=== PATIENT | male | born 1950 | race Caucasian/White ===

== ENCOUNTER 2017-04-14 14:06 | Inpatient (IN) | payer MEDICARE, OTHER ==
[2017-04-14 15:17] LABS: Hemoglobin 7.9 gm/dl (11.8-15.2); Mean Corpuscular HGB Conc 33 % (32-34); Mean Corpuscular Volume 76 fl (84-94); Platelet Count 197 K/mm3 (140-440); Red Blood Count 3.15 M/mm3 (3.65-5.03); Red Cell Distribution Width 18.7 % (13.2-15.2); White Blood Count 12.3 K/mm3 (4.5-11.0)
[2017-04-14 15:23] LABS: Mean Corpuscular Hemoglobin 25 pg (28-32)
[2017-04-14 15:34] LABS: Albumin 2.9 g/dL (3.9-5); Albumin/Globulin Ratio 0.8 %; Bilirubin,Total 0.4 mg/dL (0.1-1.2); Chloride 83.3 mmol/L (98-107); Total Protein 6.7 g/dL (6.3-8.2)
[2017-04-14 15:40] LABS: Potassium 2.6 mmol/L (3.6-5.0)
[2017-04-14] MEDS ORDERED: NACL 0.9% 1000 ML 1,000 ML IV ONE ×2 (15:41→23:47)
--- NOTE | 2017-04-14 15:41 | Emergency Department Report ---
HPI - General Chief Complaint: Nausea/Vomiting/Diarrhea Time Seen by Provider: 04/14/17 14:43 - HPI HPI: Room 7 The patient is a 66-year-old male presenting with a chief complaint of abdominal pain and chest pain. The patient only speaks Arabic so history was obtained through the use of a language line sales and service consultant. The patient is a poor historian despite use of a sales and service consultant but acknowledges he said abdominal pain, pain in his heart and diarrhea for the past 5 days. Patient denies shortness of breath, nausea/vomiting or diaphoresis. Patient originally told the sales and service consultant he took some leftover antibiotics approximately 3 days ago but then he states he takes antibiotics before his diarrhea began. When the sales and service consultant mentioned to the patient that the onset of the diarrhea and the time he states he took the antibiotics do not reconcile the patient did not respond. Location: Chest, abdomen Duration: 5 days Quality: Pain Severity: Moderate Modifying factors: [see above] Context: [see above] Mode of transportation: [not driving] ED Past Medical Hx - Past Medical History Previous Medical History?: Yes Hx Heart Attack/AMI: Yes Hx Diabetes: Yes Additional medical history: arthralgia, hypercholesterolemia - Surgical History Hx Open Heart Surgery: Yes - Family History Family history: no significant - Social History Smoking Status: Never Smoker Substance Use Type: None - Medications Home Medications: Home Medications Medication Instructions Recorded Confirmed Last Taken Type Allopurinol [Zyloprim] 100 mg PO QDAY 04/14/17 04/14/17 Unknown History Aspirin [Lo-Dose Aspirin EC] 81 mg PO DAILY 04/14/17 04/14/17 Unknown History AtorvaSTATin [Lipitor] 40 mg PO QHS 04/14/17 04/14/17 Unknown History Bisoprolol [Zebeta] 10 mg PO DAILY 04/14/17 04/14/17 Unknown History Clopidogrel [Plavix] 75 mg PO QDAY 04/14/17 04/14/17 Unknown History Famotidine [Pepcid] 20 mg PO BID 04/14/17 04/14/17 Unknown History Gabapentin [Neurontin] 300 mg PO Q8HR 04/14/17 04/14/17 Unknown History Insulin Aspart [NovoLOG Flexpen] 0 units SQ AC 04/14/17 04/14/17 Unknown History Insulin Glargine,Hum.rec.anlog 10 unit SQ QHS 04/14/17 04/14/17 Unknown History [Lantus Solostar] Insulin Lispro [Humalog 100 5 units SQ AC 04/14/17 04/14/17 Unknown History UNITS/ML Kwikpen] Prednisone [predniSONE 10 mg 10 mg PO .TAPER 04/14/17 04/14/17 Unknown History (6-Day Pack, 21 Tabs)] Valsartan [Diovan] 80 mg PO DAILY 04/14/17 04/14/17 Unknown History ED Review of Systems ROS: Stated complaint: LEG PAIN Other details as noted in HPI Constitutional: weakness. denies: diaphoresis Respiratory: denies: shortness of breath Cardiovascular: chest pain Gastrointestinal: abdominal pain, diarrhea. denies: nausea, vomiting Physical Exam - Physical Exam Vital Signs: Vital Signs 04/14/17 14:21 Temperature 97.9 F Pulse Rate 114 H Respiratory 16 Rate Blood Pressure 93/63 O2 Sat by Pulse 100 Oximetry Physical Exam: GENERAL: The patient is well-developed well-nourished male lying on stretcher not appearing to be in acute distress. [] HEENT: Normocephalic. Atraumatic. Extraocular motions are intact. Patient has moist mucous membranes. NECK: Supple. Trachea midline CHEST/LUNGS: Clear to auscultation. There is no respiratory distress noted. HEART/CARDIOVASCULAR: Regular. There is no tachycardia. There is no gallop rub or murmur. ABDOMEN: Abdomen is soft with discomfort to palpation in the right lower quadrant but no rebound or guarding. Patient has normal bowel sounds. There is no abdominal distention. SKIN: There is no rash. There is no edema. There is no diaphoresis. NEURO: The patient is awake, alert, and oriented. The patient is cooperative. The patient has normal speech MUSCULOSKELETAL: There is no evidence of acute injury. ED Course Vital Signs 04/14/17 14:21 Temperature 97.9 F Pulse Rate 114 H Respiratory 16 Rate Blood Pressure 93/63 O2 Sat by Pulse 100 Oximetry ED Medical Decision Making - Lab Data Result diagrams: 04/14/17 14:54 04/14/17 14:57 Laboratory Tests 04/14/17 04/14/17 14:54 14:57 WBC 12.3 H RBC 3.15 L Hgb 7.9 L Hct 24.0 L MCV 76 L MCH 25 L MCHC 33 RDW 18.7 H Plt Count 197 Sodium 120 L Potassium 2.6 L* Chloride 83.3 L Carbon Dioxide 15 L Anion Gap 23 BUN 67 H Creatinine 1.9 H Estimated GFR 36 BUN/Creatinine Ratio 35 Glucose 256 H Calcium 8.0 L Total Bilirubin 0.40 AST 11 ALT 12 Alkaline Phosphatase 117 Total Protein 6.7 Albumin 2.9 L Albumin/Globulin Ratio 0.8 Lipase 48 - Radiology Data Radiology results: report reviewed (CT abdomen and pelvis), image reviewed (CT abdomen and pelvis) FINAL REPORT PROCEDURE: CT ABDOMEN PELVIS WO CON TECHNIQUE: Computerized axial tomography of the abdomen and pelvis was performed without intravenous contrast. This study is performed without intravascular contrast material and its sensitivity for abdominal and pelvic pathology, including neoplasms, inflammation, abscess, free fluid, thrombosis, arterial dissection and infarction, is reduced compared with a contrast enhanced study. Oral contrast was not administered limiting evaluation of the bowel as well. HISTORY: RLQ abdominal tenderness. Diarrhea COMPARISON: None FINDINGS: Visualized lower thorax: Left posterior basilar consolidation. Intracardiac device in place.. Liver: No focal abnormality. Spleen: No focal abnormality. Gallbladder and biliary system: A couple of gallstones the largest of which is 5 millimeters at the level of the gallbladder neck. Subtle gallbladder wall thickening and pericholecystic infiltration is not excluded. Pancreas: Normal. Adrenals: Normal. Kidneys: Normal. GI tract: No bowel obstruction. No gross focal bowel abnormality. Normal appendix. Lymph nodes and mesentery: Normal. Vasculature: Calcific atherosclerosis. No abdominal aortic aneurysm. Bladder: Normal. Reproductive organs: Prostatic calcifications. Peritoneum: No ascites. Musculoskeletal structures: No significant abnormality. Other: None. IMPRESSION: A couple of sub centimeter gallstones in the region of the gallbladder neck. Subtle changes of cholecystitis are not excluded. Consider follow-up with gallbladder ultrasound as well as if deemed necessary nuclear medicine hepatobiliary scan. Left posterior basilar consolidation, subsegmental atelectasis with or without associated pneumonia. Correlate clinically. . Transcribed By: MAKENZIE Dictated By: ZO BIRMINGHAM MD Electronically Authenticated By: ZO BIRMINGHAM MD Signed Date/Time: 04/14/171220 DD/ 20 TD/TT: 04/14/171220 - Differential Diagnosis ACS, GERD, enteritis, C. difficile colitis, appendicitis Critical care attestation.: If time is entered above; I have spent that time in minutes in the direct care of this critically ill patient, excluding procedure time. ED Disposition Clinical Impression: Hyponatremia, Chest pain, Abdominal pain, Anemia Disposition: OP ADMIT IP TO THIS HOSP Is pt being admited?: Yes Does the pt Need Aspirin: No Condition: Fair Instructions: Chest Pain (ED) Time of Disposition: 16:39 (hospitalist paged)
[2017-04-14] MEDS ORDERED: K-DUR PO ONE (15:42)
--- NOTE | 2017-04-14 16:25 | Cat Scan Report ---
FINAL REPORT PROCEDURE: CT ABDOMEN PELVIS WO CON TECHNIQUE: Computerized axial tomography of the abdomen and pelvis was performed without intravenous contrast. This study is performed without intravascular contrast material and its sensitivity for abdominal and pelvic pathology, including neoplasms, inflammation, abscess, free fluid, thrombosis, arterial dissection and infarction, is reduced compared with a contrast enhanced study. Oral contrast was not administered limiting evaluation of the bowel as well. HISTORY: RLQ abdominal tenderness. Diarrhea COMPARISON: None FINDINGS: Visualized lower thorax: Left posterior basilar consolidation. Intracardiac device in place.. Liver: No focal abnormality. Spleen: No focal abnormality. Gallbladder and biliary system: A couple of gallstones the largest of which is 5 millimeters at the level of the gallbladder neck. Subtle gallbladder wall thickening and pericholecystic infiltration is not excluded. Pancreas: Normal. Adrenals: Normal. Kidneys: Normal. GI tract: No bowel obstruction. No gross focal bowel abnormality. Normal appendix. Lymph nodes and mesentery: Normal. Vasculature: Calcific atherosclerosis. No abdominal aortic aneurysm. Bladder: Normal. Reproductive organs: Prostatic calcifications. Peritoneum: No ascites. Musculoskeletal structures: No significant abnormality. Other: None. IMPRESSION: A couple of sub centimeter gallstones in the region of the gallbladder neck. Subtle changes of cholecystitis are not excluded. Consider follow-up with gallbladder ultrasound as well as if deemed necessary nuclear medicine hepatobiliary scan. Left posterior basilar consolidation, subsegmental atelectasis with or without associated pneumonia. Correlate clinically. .
[2017-04-14 16:42] LABS: Basophils % (Manual) 0 % (0.0-1.8); Blastocytes % (Manual) 0 %; Eosinophils % (Manual) 0 % (0.0-4.3)
[2017-04-14 16:43] LABS: Anisocytosis Few; Diff Status Complete; Poikilocytosis Few; Schistocytes Rare
[2017-04-14] MEDS: KCL 10MEQ/100ML 10 MEQ/100 ML BAG IV SCH ×4 (17:11→21:49)
--- NOTE | 2017-04-14 17:26 | History and Physical Report ---
History of Present Illness Chief complaint: Nausea, vomiting , and loose stools History of present illness: 66 YO Male with DM, NH, HLD, Arthralgia presents to ED for evaluation. 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 Pt states that he has experienced pain in his abdomen with concomitant nausea, loose stools, and vomiting for the past 5 days with persistent symptoms over the same time frame. Patient denies fever, chills, CP, Palpitations, Syncope, shortness of breath, diaphoresis, unintentional weight loss, night sweats, vertigo, seizures , trauma, recent ill contacts. Pt denies pain in his chest at time of exam, and points to a region consistent with the epigastric area as the source of his pain. Pt seen and evaluated in ED and found to have symptoms consistent with symptomatic cholelithiasis. Pt treated with IV abx, bowel rest. Past History Past Medical History: acute NH, diabetes, hyperlipidemia Past Surgical History: No surgical history, Other (reviewed) Social history: single. denies: smoking, alcohol abuse, prescription drug abuse Family history: no significant family history (reviewed) Medications and Allergies Allergies Allergy/AdvReac Type Severity Reaction Status Date / Time Unable to Assess Allergy Unverified 04/14/17 14:24 Home Medications Medication Instructions Recorded Confirmed Last Taken Type Allopurinol [Zyloprim] 100 mg PO QDAY 04/14/17 04/14/17 Unknown History Aspirin [Lo-Dose Aspirin EC] 81 mg PO DAILY 04/14/17 04/14/17 Unknown History AtorvaSTATin [Lipitor] 40 mg PO QHS 04/14/17 04/14/17 Unknown History Bisoprolol [Zebeta] 10 mg PO DAILY 04/14/17 04/14/17 Unknown History Clopidogrel [Plavix] 75 mg PO QDAY 04/14/17 04/14/17 Unknown History Famotidine [Pepcid] 20 mg PO BID 04/14/17 04/14/17 Unknown History Gabapentin [Neurontin] 300 mg PO Q8HR 04/14/17 04/14/17 Unknown History Insulin Aspart [NovoLOG Flexpen] 0 units SQ AC 04/14/17 04/14/17 Unknown History Insulin Glargine,Hum.rec.anlog 10 unit SQ QHS 04/14/17 04/14/17 Unknown History [Lantus Solostar] Insulin Lispro [Humalog 100 5 units SQ AC 04/14/17 04/14/17 Unknown History UNITS/ML Kwikpen] Prednisone [predniSONE 10 mg 10 mg PO .TAPER 04/14/17 04/14/17 Unknown History (6-Day Pack, 21 Tabs)] Valsartan [Diovan] 80 mg PO DAILY 04/14/17 04/14/17 Unknown History Active Meds: Active Medications Sodium Chloride (Nacl 0.9% 1000 Ml) 1,000 mls @ 125 mls/hr IV ONCE ONE Stop: 04/14/17 23:40 Last Admin: 04/14/17 17:10 Dose: 125 mls/hr Potassium Chloride (Kcl 10meq/100ml) 10 meq in 100 mls @ 100 mls/hr IV Q1H DANIELE Stop: 04/14/17 19:59 Last Admin: 04/14/17 17:11 Dose: 100 mls/hr Review of Systems Constitutional: no weight loss, no weight gain, no fever, no chills Ears, nose, mouth and throat: no ear pain, no ear discharge, no tinnitis, no decreased hearing, no nose pain, no nasal congestion Cardiovascular: no chest pain, no orthopnea, no palpitations, no rapid/ irregular heart beat, no edema Respiratory: no cough, no cough with sputum, no excessive sputum, no hemoptysis , no shortness of breath Gastrointestinal: abdominal pain, nausea, vomiting, diarrhea, no hematemesis, no coffee ground emesis, no BRBPR, no melena, no hematochezia, no loss of appetite Genitourinary Male: no hematuria, no flank pain, no discharge, no urinary frequency, no urinary hesitancy Rectal: no pain, no incontinence, no bleeding Musculoskeletal: no neck stiffness, no neck pain, no shooting arm pain, no arm numbness/tingling Integumentary: no rash, no pruritis, no redness, no sores, no wounds, no jaundice Neurological: no head injury, no transient paralysis, no paralysis, no weakness , no parathesias, no numbness, no tingling, no seizures Psychiatric: no anxiety, no memory loss, no change in sleep habits, no insomnia , no hypersomnia, no change in libido Endocrine: no cold intolerance, no heat intolerance, no polyphagia, no excessive thirst, no polydipsia, no polyuria Hematologic/Lymphatic: no easy bruising, no easy bleeding Allergic/Immunologic: no urticaria, no wheezing Exam - Constitutional Vitals: Temp Pulse Resp BP Pulse Ox 97.9 F 114 H 16 93/63 100 04/14/17 14:21 04/14/17 14:21 04/14/17 14:21 04/14/17 14:21 04/14/17 14:21 General appearance: Present: mild distress, cachectic - EENT Eyes: Present: PERRL ENT: hearing intact, clear oral mucosa - Neck Neck: Present: supple, normal ROM - Respiratory Respiratory effort: normal Respiratory: bilateral: CTA - Cardiovascular Heart Sounds: Present: S1 & S2. Absent: rub, click - Extremities Extremities: pulses symmetrical, No edema Peripheral Pulses: within normal limits - Abdominal General gastrointestinal: Present: soft, tender, non-distended, normal bowel sounds. Absent: hepatomegaly, splenomegaly, mass Localized gastrointestinal: tender: RUQ, guarding: RUQ Male genitourinary: Present: normal - Integumentary Integumentary: Present: clear, warm, dry - Musculoskeletal Musculoskeletal: gait normal, strength equal bilaterally - Psychiatric Psychiatric: appropriate mood/affect, intact judgment & insight - Neurologic Neurologic: CNII-XII intact, moves all extremities Results - Labs CBC & Chem 7: 04/14/17 14:54 04/14/17 14:57 Labs: Abnormal lab results 04/14/17 04/14/17 Range/Units 14:54 14:57 WBC 12.3 H (4.5-11.0) K/mm3 RBC 3.15 L (3.65-5.03) M/mm3 Hgb 7.9 L (11.8-15.2) gm/dl Hct 24.0 L (35.5-45.6) % MCV 76 L (84-94) fl MCH 25 L (28-32) pg RDW 18.7 H (13.2-15.2) % Seg Neuts % (Manual) 89.0 H (40.0-70.0) % Lymphocytes % (Manual) 1.0 L (13.4-35.0) % Seg Neutrophils # Man 10.9 H (1.8-7.7) K/mm3 Lymphocytes # (Manual) 0.1 L (1.2-5.4) K/mm3 Sodium 120 L (137-145) mmol/L Potassium 2.6 L* (3.6-5.0) mmol/L Chloride 83.3 L (98-107) mmol/L Carbon Dioxide 15 L (22-30) mmol/L BUN 67 H (9-20) mg/dL Creatinine 1.9 H (0.8-1.5) mg/dL Glucose 256 H (75-100) mg/dL Calcium 8.0 L (8.4-10.2) mg/dL Albumin 2.9 L (3.9-5) g/dL Assessment and Plan - Patient Problems (1) Symptomatic cholelithiasis Current Visit: Yes Status: Acute Plan to address problem: Bowel rest, Abdominal ultrasound, IV abx, CT abdomen pelvis, supportive care, pain control, GI consulted, (2) ARF (acute renal failure) Current Visit: Yes Status: Acute Plan to address problem: IVF resuscitation, monitor uop q shift, supportive care. (3) Metabolic acidosis Current Visit: Yes Status: Acute Plan to address problem: Treat cholelithiasis, IVF replacement, IV bicarbonate (4) Hypokalemia Current Visit: Yes Status: Acute Plan to address problem: repleted, (5) Hyponatremia syndrome Current Visit: Yes Status: Acute Plan to address problem: IVF resuscitation therapy, serial bmp (6) DVT prophylaxis Current Visit: Yes Status: Acute (7) Anemia Current Visit: Yes Status: Acute Qualifiers: Anemia type: iron deficiency Plan to address problem: GI consulted for possible endoscopy, NO PRBC transfusion at this time.
[2017-04-14] MEDS ORDERED: SODIUM BICARBONATE IV ONE ×2 (19:07→20:00)
[2017-04-14] MEDS ORDERED: NACL 0.9% 1000 ML IV ONE (19:28)
[2017-04-14] MEDS: FLAGYL 500 MG/100 ML 500 MG/100 ML BAG IV SCH (23:16)
[2017-04-14 23:35] LABS: Bilirubin,Urine NEG (Negative); Blood,Urine SM (Negative); Ketones,Urine NEG (Negative); Leukocyte Esterase,Urine NEG (Negative); Mucus,Urine FEW /HPF; Nitrite,Urine NEG (Negative); Protein,Urine <15 mg/dL mg/dL (Negative); Urobilinogen,Urine < 2.0 mg/dL (<2.0); WBC,Urine < 1.0 /HPF (0.0-6.0)
[2017-04-15] MEDS ORDERED: NACL 0.9% 1000 ML 1,000 ML IV ONE (00:50)
--- NOTE | 2017-04-15 01:27 | Emergency Department Report ---
Blank Doc - Documentation Documentation: I was asked by the hospitalist to put a central line in this patient due to refractory hypotension patient needed to be on pressors. Patient written consent obtained, timeout performed, right groin area prepped and draped in a sterile fashion, patient has cystitis 5 mL of lidocaine 2%, slender technique, triple-lumen inserted in the right femoral vein with no complications, 2 used to secure the line and Tegaderm was applied for Dressing. Patient tolerated procedure well was no complications.
[2017-04-15] MEDS ORDERED: LEVOPHED DRIP 4 MG/NS 250 ML 4 MG/250 ML BAG IV ONE (01:47)
[2017-04-15] MEDS ORDERED: LEVOPHED 8 MG in NACL 0.9% 250ML 242 ML IV SCH (02:00)
[2017-04-15] MEDS ORDERED: LEVOPHED DRIP 4 MG/NS 250 ML 4 MG/250 ML BAG IV SCH (02:00)
[2017-04-15] MEDS ORDERED: NACL 0.9% 1000 ML 1,000 ML IV SCH (02:00)
[2017-04-15] MEDS ORDERED: NACL 0.45% 1000 ML 1,000 ML IV ONE (06:02)
[2017-04-15] MEDS ORDERED: FLAGYL 500 MG/100 ML 500 MG/100 ML BAG IV ONE (06:02)
[2017-04-15] MEDS: FLAGYL 500 MG/100 ML 500 MG/100 ML BAG IV SCH ×3 (06:12→20:59)
[2017-04-15 08:51] LABS: Hematocrit 20.3 % (35.5-45.6); Hemoglobin 6.7 gm/dl (11.8-15.2); Mean Corpuscular HGB Conc 33 % (32-34); Mean Corpuscular Volume 76 fl (84-94); Platelet Count 195 K/mm3 (140-440); Red Blood Count 2.68 M/mm3 (3.65-5.03); Red Cell Distribution Width 18.4 % (13.2-15.2); White Blood Count 9.3 K/mm3 (4.5-11.0)
[2017-04-15 09:12] LABS: Mean Corpuscular Hemoglobin 25 pg (28-32)
[2017-04-15 09:13] LABS: Alanine Aminotransferase 10 units/L (7-56); Albumin 2.6 g/dL (3.9-5); Albumin/Globulin Ratio 0.8 %; Alkaline Phosphatase 98 units/L (35-129); Anion Gap 20 mmol/L; BUN/Creatinine Ratio 37; Blood Urea Nitrogen 41 mg/dL (9-20); Calcium 7.5 mg/dL (8.4-10.2); Carbon Dioxide 15 mmol/L (22-30); Chloride 107.4 mmol/L (98-107); Glucose 173 mg/dL (75-100); Potassium 3.1 mmol/L (3.6-5.0); Sodium 139 mmol/L (137-145); Total Protein 5.9 g/dL (6.3-8.2)
--- NOTE | 2017-04-15 10:52 | Consultation ---
History of Present Illness - Reason for Consult Consult date: 04/15/17 Hypotension Requesting physician: LESLY SILVERMAN - History of Present Illness 66 y/o male, does not speak [place] Citizen, admitted with nausea vomiting and abdominal pain for several days. Also some complaints of diarrhea. Patient found to have gallbladder disease. Was destined for floor but per report was hypotensive in ED so central line placed and started on Vasopressor therapy. Currently of pressors and stable. Past History Past Medical History: acute [place], diabetes, hyperlipidemia Past Surgical History: No surgical history, Other (reviewed) Social history: single. denies: smoking, alcohol abuse, prescription drug abuse Family history: no significant family history (reviewed) Medications and Allergies Allergies Allergy/AdvReac Type Severity Reaction Status Date / Time Unable to Assess Allergy Unverified 04/14/17 14:24 Home Medications Medication Instructions Recorded Confirmed Last Taken Type Allopurinol [Zyloprim] 100 mg PO QDAY 04/14/17 04/14/17 Unknown History Aspirin [Lo-Dose Aspirin EC] 81 mg PO DAILY 04/14/17 04/14/17 Unknown History AtorvaSTATin [Lipitor] 40 mg PO QHS 04/14/17 04/14/17 Unknown History Bisoprolol [Zebeta] 10 mg PO DAILY 04/14/17 04/14/17 Unknown History Clopidogrel [Plavix] 75 mg PO QDAY 04/14/17 04/14/17 Unknown History Famotidine [Pepcid] 20 mg PO BID 04/14/17 04/14/17 Unknown History Gabapentin [Neurontin] 300 mg PO Q8HR 04/14/17 04/14/17 Unknown History Insulin Aspart [NovoLOG Flexpen] 0 units SQ AC 04/14/17 04/14/17 Unknown History Insulin Glargine,Hum.rec.anlog 10 unit SQ QHS 04/14/17 04/14/17 Unknown History [Lantus Solostar] Insulin Lispro [Humalog 100 5 units SQ AC 04/14/17 04/14/17 Unknown History UNITS/ML Kwikpen] Prednisone [predniSONE 10 mg 10 mg PO .TAPER 04/14/17 04/14/17 Unknown History (6-Day Pack, 21 Tabs)] Valsartan [Diovan] 80 mg PO DAILY 04/14/17 04/14/17 Unknown History Active Meds: Active Medications Enoxaparin Sodium (Lovenox) 40 mg SUB-Q QDAY@1000 DANIELE Levofloxacin/Dextrose (Levaquin 500mg/100ml) 500 mg in 100 mls @ 100 mls/hr IV Q24HR [facility] PRN Reason: Protocol Metronidazole (Flagyl 500 Mg/100 Ml) 500 mg in 100 mls @ 100 mls/hr IV Q8HR [facility] Last Admin: 04/15/17 06:12 Dose: 100 mls/hr Potassium Chloride (Kcl 10meq/100ml) 10 meq in 100 mls @ 100 mls/hr IV Q1H [facility] Stop: 04/15/17 14:59 Potassium Chloride (K-Dur) 40 meq PO ONCE ONE Stop: 04/15/17 11:01 Review of Systems All systems: negative Exam - Constitutional Vitals: Temp Pulse Resp BP Pulse Ox 97.6 F 75 20 125/53 100 04/15/17 08:10 04/15/17 10:15 04/15/17 10:15 04/15/17 10:15 04/15/17 10:15 General appearance: Present: no acute distress, well-nourished - EENT Eyes: Present: PERRL, EOM intact ENT: hearing intact - Neck Neck: Present: supple, normal ROM - Respiratory Respiratory effort: normal Respiratory: bilateral: CTA - Cardiovascular Rhythm: regular Heart Sounds: Present: S1 & S2 - Abdominal General gastrointestinal: Present: tender Results - Labs CBC & Chem 7: 04/15/17 08:41 04/15/17 08:41 Labs: Abnormal lab results 04/14/17 04/14/17 04/15/17 Range/Units 14:54 14:57 08:41 WBC 12.3 H (4.5-11.0) K/mm3 RBC 3.15 L 2.68 L (3.65-5.03) M/mm3 Hgb 7.9 L 6.7 L (11.8-15.2) gm/dl Hct 24.0 L 20.3 L (35.5-45.6) % MCV 76 L 76 L (84-94) fl MCH 25 L 25 L (28-32) pg RDW 18.7 H 18.4 H (13.2-15.2) % Seg Neuts % (Manual) 89.0 H (40.0-70.0) % Lymphocytes % (Manual) 1.0 L (13.4-35.0) % Seg Neutrophils # Man 10.9 H (1.8-7.7) K/mm3 Lymphocytes # (Manual) 0.1 L (1.2-5.4) K/mm3 Sodium 120 L (137-145) mmol/L Potassium 2.6 L* (3.6-5.0) mmol/L Chloride 83.3 L (98-107) mmol/L Carbon Dioxide 15 L (22-30) mmol/L BUN 67 H (9-20) mg/dL Creatinine 1.9 H (0.8-1.5) mg/dL Glucose 256 H (75-100) mg/dL Calcium 8.0 L (8.4-10.2) mg/dL Total Protein (6.3-8.2) g/dL Albumin 2.9 L (3.9-5) g/dL 04/15/17 Range/Units 08:41 WBC (4.5-11.0) K/mm3 RBC (3.65-5.03) M/mm3 Hgb (11.8-15.2) gm/dl Hct (35.5-45.6) % MCV (84-94) fl MCH (28-32) pg RDW (13.2-15.2) % Seg Neuts % (Manual) (40.0-70.0) % Lymphocytes % (Manual) (13.4-35.0) % Seg Neutrophils # Man (1.8-7.7) K/mm3 Lymphocytes # (Manual) (1.2-5.4) K/mm3 Sodium (137-145) mmol/L Potassium 3.1 L (3.6-5.0) mmol/L Chloride 107.4 H (98-107) mmol/L Carbon Dioxide 15 L (22-30) mmol/L BUN 41 H (9-20) mg/dL Creatinine (0.8-1.5) mg/dL Glucose 173 H (75-100) mg/dL Calcium 7.5 L (8.4-10.2) mg/dL Total Protein 5.9 L (6.3-8.2) g/dL Albumin 2.6 L (3.9-5) g/dL - Imaging and Cardiology CT scan - abdomen: report reviewed CT scan - pelvis: report reviewed Assessment and Plan 66 y/o male with acute cholelithasis and volume depletion 1. NPO for now until evaluated by GI 2. Off pressors and stable. IVF's as needed 3. Stable for transfer out of ICU
[2017-04-15] MEDS: LEVAQUIN 500MG/100ML 500 MG/100 ML BAG IV SCH (10:58)
[2017-04-15] MEDS ORDERED: K-DUR PO ONE (11:00)
[2017-04-15] MEDS ORDERED: LOVENOX SUB-Q SCH (11:00)
[2017-04-15] MEDS: KCL 10MEQ/100ML 10 MEQ/100 ML BAG IV SCH ×8 (12:58→22:05)
--- NOTE | 2017-04-15 16:20 | Ultrasound Report ---
ULTRASOUND ABDOMEN COMPLETE INDICATION: Gallstones. COMPARISON: Yesterday's CT. FINDINGS: Abdominal sonography may suggest slight hepatic coarsening and subtle hepatic surface lobulation. No definite focal suspicious hepatic lesions or biliary dilatation however. Few small echogenic gallstones toward the gallbladder neck measuring up to 5 mm, image 48. Accurate gallbladder wall thickness assessment somewhat difficult, though may measure up to 4 mm. No definite pericholecystic fluid or positive sonographic Waters's sign however. CBD caliber is 3 mm. Homogenous spleen, 9 cm in length. No ascites. Minimal left pleural fluid not entirely excluded. Normal imaged pancreas, IVC and non-aneurysmal abdominal aorta. No hydronephrosis. Right kidney is 10.8 x 5.4 x 5 cm with cortical thickness of 1.3 cm. Left kidney is 10.3 x 5 x 5 cm with cortical thickness of 1.5 cm. CONCLUSION: Cholelithiasis again noted with other findings, as above. Please also correlate clinically and with laboratory values. Thank you for the opportunity to participate in this patient's care.
[2017-04-15] MEDS ORDERED: NACL 0.9% 500 ML 500 ML IV NR (16:22)
--- NOTE | 2017-04-15 17:13 | Progress Note ---
Assessment and Plan Assessment and plan: Patient is 66-year-old Laotian man with a history of diabetes mellitus and arthritis who presented with diarrhea/n/v and found the following: CT abdomen and pelvis without contrast reported as a couple of subcentimeter gallstones in the region of the gallbladder neck, subtle changes of cholecystitis or not excluded, consider follow gallbladder ultrasound as well as being necessary nuclear medicine hepatobiliary scan, left posterior basilar consolidation, subcentimeter normal atelectasis with or without associated pneumonia, correlate clinically. Then, Complete abdominal ultrasound reported as cholelithiasis toward the gallbladder neck... -Sepsis with suspected cholecystitis: Treat with IV antibiotics -Cholelithiasis, rule out choledocholithiasis: Consult GI, either MRCP versus HIDA scan -Hypotension, vasopressors weaned off, okay to transfer out of ICU per plastic maker -Acute renal failure, ATN, present on admission, resolved with IV fluids -Drop in hematocrit: Check FOBT, consulted GI, stopped DVT prophylaxis with heparin, transfuse 1 unit of blood -Severe hyponatremia, treated with IV fluids: Repeat levels a.m. -Hypokalemia with dehydration, replace: Repeat in a.m. The high probability of a clinically significant, sudden or life threatening deterioration of the [neurologic,cardiac] system(s) required my full and direct attention, intervention and personal management. The aggregate critical care time was [ 33 ] minutes. This time is in addition to time spent performing reported procedures but includes the following: [x] Data Review and interpretation [x] Patient assessment and monitoring of vital signs [x] Documentation [x] Medication orders and management History Interval history: Patient was seen and examined. Follow-up on current diagnosis. Overnight uneventful. Patient denies any chest pain, shortness breath, nausea/vomiting or severe headaches. Imaging, nursing note, chart, labs and old chart reviewed. Discussed with patient. He tells me that he speaks Kazakh. He understands some Serbian but not much. Hospitalist Physical - Physical exam Narrative exam: GEN: WDWN, NAD, AWAKE, ALERT, ORIENTATED HEENT: NCAT, EOMI, PERRL, OP Clear NECK: supple, no adenopathy, no thyromegaly, no JVD CVS/HEART: RRR, NORMAL S1S2, NO JVD, pulses present bilaterally CHEST/LUNGS: CTA B, Symmetrical chest expansion, good air entry bilaterally GI/Abdomen: soft, NTND, good bowel sounds, no guarding or rebound /Bladder: no suprapubic tenderness, no CVA or paraspinal tenderness EXT/Skin: no c/c/e, no obvious rash, large naked woman tattoo on his right anterior thigh MSK: FROM x 4 Neuro: CN 2-12 grossly intact, no new focal deficits Psych: calm - Constitutional Vitals: Temp Pulse Resp BP Pulse Ox 97.5 F L 73 13 122/55 100 04/15/17 16:00 04/15/17 16:45 04/15/17 16:45 04/15/17 16:45 04/15/17 16:45 General appearance: Present: no acute distress, well-nourished Results - Labs CBC & Chem 7: 04/15/17 08:41 04/15/17 08:41 Labs: Laboratory Last Values WBC 9.3 K/mm3 (4.5-11.0) 04/15/17 08:41 RBC 2.68 M/mm3 (3.65-5.03) L 04/15/17 08:41 Hgb 6.7 gm/dl (11.8-15.2) L 04/15/17 08:41 Hct 20.3 % (35.5-45.6) L 04/15/17 08:41 MCV 76 fl (84-94) L 04/15/17 08:41 MCH 25 pg (28-32) L 04/15/17 08:41 MCHC 33 % (32-34) 04/15/17 08:41 RDW 18.4 % (13.2-15.2) H 04/15/17 08:41 Plt Count 195 K/mm3 (140-440) 04/15/17 08:41 Add Manual Diff Complete 04/14/17 14:54 Total Counted 100 04/14/17 14:54 Seg Neuts % (Manual) 89.0 % (40.0-70.0) H 04/14/17 14:54 Band Neutrophils % 0 % 04/14/17 14:54 Lymphocytes % (Manual) 1.0 % (13.4-35.0) L 04/14/17 14:54 Reactive Lymphs % (Man) 0 % 04/14/17 14:54 Monocytes % (Manual) 6.0 % (0.0-7.3) 04/14/17 14:54 Eosinophils % (Manual) 0 % (0.0-4.3) 04/14/17 14:54 Basophils % (Manual) 0 % (0.0-1.8) 04/14/17 14:54 Metamyelocytes % 1.0 % 04/14/17 14:54 Myelocytes % 3.0 % 04/14/17 14:54 Promyelocytes % 0 % 04/14/17 14:54 Blast Cells % 0 % 04/14/17 14:54 Nucleated RBC % Not Reportable 04/14/17 14:54 Seg Neutrophils # Man 10.9 K/mm3 (1.8-7.7) H 04/14/17 14:54 Band Neutrophils # 0.0 K/mm3 04/14/17 14:54 Lymphocytes # (Manual) 0.1 K/mm3 (1.2-5.4) L 04/14/17 14:54 Abs React Lymphs (Man) 0.0 K/mm3 04/14/17 14:54 Monocytes # (Manual) 0.7 K/mm3 (0.0-0.8) 04/14/17 14:54 Eosinophils # (Manual) 0.0 K/mm3 (0.0-0.4) 04/14/17 14:54 Basophils # (Manual) 0.0 K/mm3 (0.0-0.1) 04/14/17 14:54 Metamyelocytes # 0.1 K/mm3 04/14/17 14:54 Myelocytes # 0.4 K/mm3 04/14/17 14:54 Promyelocytes # 0.0 K/mm3 04/14/17 14:54 Blast Cells # 0.0 K/mm3 04/14/17 14:54 WBC Morphology Not Reportable 04/14/17 14:54 Hypersegmented Neuts Not Reportable 04/14/17 14:54 Hyposegmented Neuts Not Reportable 04/14/17 14:54 Hypogranular Neuts Not Reportable 04/14/17 14:54 Smudge Cells Not Reportable 04/14/17 14:54 Toxic Granulation Not Reportable 04/14/17 14:54 Toxic Vacuolation Not Reportable 04/14/17 14:54 Dohle Bodies Not Reportable 04/14/17 14:54 Pelger-Huet Anomaly Not Reportable 04/14/17 14:54 Rafat Rods Not Reportable 04/14/17 14:54 Platelet Estimate Appears normal 04/14/17 14:54 Clumped Platelets Not Reportable 04/14/17 14:54 Plt Clumps, EDTA Not Reportable 04/14/17 14:54 Large Platelets Not Reportable 04/14/17 14:54 Giant Platelets Not Reportable 04/14/17 14:54 Platelet Satelliting Not Reportable 04/14/17 14:54 Plt Morphology Comment Not Reportable 04/14/17 14:54 RBC Morphology Not Reportable 04/14/17 14:54 Dimorphic RBCs Not Reportable 04/14/17 14:54 Polychromasia Not Reportable 04/14/17 14:54 Hypochromasia Not Reportable 04/14/17 14:54 Poikilocytosis Few 04/14/17 14:54 Anisocytosis Few 04/14/17 14:54 Microcytosis Not Reportable 04/14/17 14:54 Macrocytosis Not Reportable 04/14/17 14:54 Spherocytes Not Reportable 04/14/17 14:54 Pappenheimer Bodies Not Reportable 04/14/17 14:54 Sickle Cells Not Reportable 04/14/17 14:54 Target Cells Not Reportable 04/14/17 14:54 Tear Drop Cells Not Reportable 04/14/17 14:54 Ovalocytes Not Reportable 04/14/17 14:54 Helmet Cells Not Reportable 04/14/17 14:54 Machado-Newman Bodies Not Reportable 04/14/17 14:54 St[place]ard Rings Not Reportable 04/14/17 14:54 Jermyn Cells Not Reportable 04/14/17 14:54 Bite Cells Not Reportable 04/14/17 14:54 Crenated Cell Not Reportable 04/14/17 14:54 Elliptocytes Not Reportable 04/14/17 14:54 Acanthocytes (Spur) Not Reportable 04/14/17 14:54 Rouleaux Not Reportable 04/14/17 14:54 Hemoglobin C Crystals Not Reportable 04/14/17 14:54 Schistocytes Rare 04/14/17 14:54 Malaria parasites Not Reportable 04/14/17 14:54 Jayson Bodies Not Reportable 04/14/17 14:54 Hem Pathologist Commnt No 04/14/17 14:54 Sodium 139 mmol/L (137-145) D 04/15/17 08:41 Potassium 3.1 mmol/L (3.6-5.0) L 04/15/17 08:41 Chloride 107.4 mmol/L (98-107) H 04/15/17 08:41 Carbon Dioxide 15 mmol/L (22-30) L 04/15/17 08:41 Anion Gap 20 mmol/L 04/15/17 08:41 BUN 41 mg/dL (9-20) H 04/15/17 08:41 Creatinine 1.1 mg/dL (0.8-1.5) 04/15/17 08:41 Estimated GFR > 60 ml/min 04/15/17 08:41 BUN/Creatinine Ratio 37 % 04/15/17 08:41 Glucose 173 mg/dL (75-100) H 04/15/17 08:41 Lactic Acid 1.00 mmol/L (0.7-2.0) 04/15/17 01:29 Calcium 7.5 mg/dL (8.4-10.2) L 04/15/17 08:41 Total Bilirubin 0.30 mg/dL (0.1-1.2) 04/15/17 08:41 AST 10 units/L (5-40) 04/15/17 08:41 ALT 10 units/L (7-56) 04/15/17 08:41 Alkaline Phosphatase 98 units/L (35-129) 04/15/17 08:41 Total Protein 5.9 g/dL (6.3-8.2) L 04/15/17 08:41 Albumin 2.6 g/dL (3.9-5) L 04/15/17 08:41 Albumin/Globulin Ratio 0.8 % 04/15/17 08:41 Lipase 48 units/L (13-60) 04/14/17 14:57 Urine Color Yellow (Yellow) 04/14/17 22:56 Urine Turbidity Clear (Clear) 04/14/17 22:56 Urine pH 5.0 (5.0-7.0) 04/14/17 22:56 Ur Specific [place] 1.006 (1.003-1.030) 04/14/17 22:56 Urine Protein <15 mg/dl mg/dL (Negative) 04/14/17 22:56 Urine Glucose (UA) Neg mg/dL (Negative) 04/14/17 22:56 Urine Ketones Neg mg/dL (Negative) 04/14/17 22:56 Urine Blood Sm (Negative) 04/14/17 22:56 Urine Nitrite Neg (Negative) 04/14/17 22:56 Urine Bilirubin Neg (Negative) 04/14/17 22:56 Urine Urobilinogen < 2.0 mg/dL (<2.0) 04/14/17 22:56 Ur Leukocyte Esterase Neg (Negative) 04/14/17 22:56 Urine WBC (Auto) < 1.0 /HPF (0.0-6.0) 04/14/17 22:56 Urine RBC (Auto) 2.0 /HPF (0.0-6.0) 04/14/17 22:56 Urine Mucus Few /HPF 04/14/17 22:56
[2017-04-16] MEDS: FLAGYL 500 MG/100 ML 500 MG/100 ML BAG IV SCH ×3 (05:04→22:22)
[2017-04-16 05:45] LABS: Hematocrit 23.2 % (35.5-45.6); Hemoglobin 7.9 gm/dl (11.8-15.2); Mean Corpuscular HGB Conc 34 % (32-34); Mean Corpuscular Hemoglobin 27 pg (28-32); Mean Corpuscular Volume 78 fl (84-94); Platelet Count 219 K/mm3 (140-440); Red Blood Count 2.97 M/mm3 (3.65-5.03); Red Cell Distribution Width 19.6 % (13.2-15.2); White Blood Count 8.4 K/mm3 (4.5-11.0)
[2017-04-16 06:02] LABS: Anion Gap 20 mmol/L; BUN/Creatinine Ratio 20; Blood Urea Nitrogen 18 mg/dL (9-20); Calcium 8.3 mg/dL (8.4-10.2); Carbon Dioxide 18 mmol/L (22-30); Chloride 107.7 mmol/L (98-107); Glucose 158 mg/dL (75-100); Potassium 3.5 mmol/L (3.6-5.0); Sodium 142 mmol/L (137-145)
--- NOTE | 2017-04-16 10:02 | Gastroenterology Consultation ---
History of Present Illness - Reason for Consult Consult date: 04/16/17 choledolethiasis Requesting physician: MOY ARENAS - History of Present Illness Patient is a 66 y/o Laotian male with PMH of CAD, ME, DM, arthralgia, and HLD who presented to the ED for an evaluation. He was found to be hypotensive on admission and sent to ICU on pressors for treatment of sepsis, however hypotension has now resolved off pressors and pt is now on the floor. This am pt was resting in bed. No acute distress. He is non Pakistani speaking. History obtained thru clerical associate. He reports left leg pain and RUQ abd pain x 2-3 days with associated nausea w/o vomiting. He states abd pain is intermittent, non- radiating, and w/o any aggravating factors such as eating or drinking. Nausea is now resolved. Abd is soft, non-distended, non-tender, w/ +BS on exam. No ill contacts, recent abx therapy, or travel. Denies fever, wt loss, vomiting, diarrhea, or constipation. He was also found to be anemic on admission with H/H 7.9/24.0 which trended down to 6.7/20.3 yesterday and fay appropriately after 1 unit of PRBCs to now 7.9/23.2. No active signs of bleeding. He denies any hematemesis, melena, or hematochezia. On ASA and plavix at home. No hx of PUD. No Fhx of GI cancers. No previous EGD or colonoscopy. Past History Past Medical History: acute ME, diabetes, hyperlipidemia, other (arthralgia) Past Surgical History: CABG Social history: single, lives with family. denies: smoking, alcohol abuse, prescription drug abuse Family history: no significant family history (reviewed) Medications and Allergies Allergies Allergy/AdvReac Type Severity Reaction Status Date / Time Unable to Assess Allergy Unverified 04/14/17 14:24 Home Medications Medication Instructions Recorded Confirmed Last Taken Type Allopurinol [Zyloprim] 100 mg PO QDAY 04/14/17 04/14/17 Unknown History Aspirin [Lo-Dose Aspirin EC] 81 mg PO DAILY 04/14/17 04/14/17 Unknown History AtorvaSTATin [Lipitor] 40 mg PO QHS 04/14/17 04/14/17 Unknown History Bisoprolol [Zebeta] 10 mg PO DAILY 04/14/17 04/14/17 Unknown History Clopidogrel [Plavix] 75 mg PO QDAY 04/14/17 04/14/17 Unknown History Famotidine [Pepcid] 20 mg PO BID 04/14/17 04/14/17 Unknown History Gabapentin [Neurontin] 300 mg PO Q8HR 04/14/17 04/14/17 Unknown History Insulin Aspart [NovoLOG Flexpen] 0 units SQ AC 04/14/17 04/14/17 Unknown History Insulin Glargine,Hum.rec.anlog 10 unit SQ QHS 04/14/17 04/14/17 Unknown History [Lantus Solostar] Insulin Lispro [Humalog 100 5 units SQ AC 04/14/17 04/14/17 Unknown History UNITS/ML Kwikpen] Prednisone [predniSONE 10 mg 10 mg PO .TAPER 04/14/17 04/14/17 Unknown History (6-Day Pack, 21 Tabs)] Valsartan [Diovan] 80 mg PO DAILY 04/14/17 04/14/17 Unknown History Active Meds: Active Medications Levofloxacin/Dextrose (Levaquin 500mg/100ml) 500 mg in 100 mls @ 100 mls/hr IV Q24HR [facility] PRN Reason: Protocol Last Admin: 04/15/17 10:58 Dose: 100 mls/hr Metronidazole (Flagyl 500 Mg/100 Ml) 500 mg in 100 mls @ 100 mls/hr IV Q8HR [facility] Last Admin: 04/16/17 05:04 Dose: 100 mls/hr Review of Systems - Review of Systems All systems: negative Gastrointestinal: abdominal pain Musculoskeletal: other (left leg pain) Exam - Constitutional Vital Signs: Temp Pulse Resp BP Pulse Ox 98.1 F 81 18 104/46 97 04/16/17 04:19 04/16/17 04:19 04/16/17 04:19 04/16/17 04:19 04/16/17 04:19 General appearance: no acute distress, well-nourished - EENT Eyes: PERRL, EOM intact - Respiratory Respiratory: bilateral: CTA - Cardiovascular Rhythm: regular Heart Sounds: Present: S1 & S2 Extremities: No edema - Gastrointestinal General gastrointestinal: Present: soft, non-tender, non-distended, normal bowel sounds - Integumentary Integumentary: Present: warm, dry - Neurologic Neurological: alert and oriented x3 - Labs CBC & Chem 7: 04/16/17 05:12 04/16/17 05:12 Lab Results: Laboratory Results - last 24 hr 04/15/17 04/16/17 04/16/17 17:02 05:12 05:12 WBC 8.4 RBC 2.97 L Hgb 7.9 L Hct 23.2 L MCV 78 L MCH 27 L MCHC 34 RDW 19.6 H Plt Count 219 Sodium 142 Potassium 3.5 L Chloride 107.7 H Carbon Dioxide 18 L Anion Gap 20 BUN 18 Creatinine 0.9 Estimated GFR > 60 BUN/Creatinine Ratio 20 Glucose 158 H Calcium 8.3 L Magnesium 1.60 L Blood Type A POSITIVE Antibody Screen Negative Crossmatch See Detail Assessment and Plan 1.abd pain 2.anemia -WBC-8.4 -afebrile -LFTs-WNL -abd CT w/o contrast showed gallstones with possible cholecystitis -abd U/S showed gallstones but no CBD dilation -H/H 7.9/23.2- s/p transfusion of 1 unit PRBCs -continue to monitor H/H and transfuse as needed -no active signs of bleeding -will start on daily PPI -recommend pt have an EGD/colonoscopy (most likely on Wednesday) once sepsis has been further evaluated and pt medically stable -will order repeat abd CT with contrast- if results negative, would consider HIDA -no evidence of choledocholithiasis with LFTs normal and no CBD dilation- no recommendation for an MRCP at this time -continue supportive care -further recommendations to follow
[2017-04-16] MEDS: LEVAQUIN 500MG/100ML 500 MG/100 ML BAG IV SCH (10:52)
[2017-04-16] MEDS ORDERED: PROTONIX IV SCH (11:00)
[2017-04-16] MEDS: PEPCID IV SCH ×2 (14:38→22:22)
[2017-04-16] MEDS ORDERED: MAGNESIUM SULFATE 2GM/50ML 2 GM/50 ML BAG IV ONE (14:42)
[2017-04-16] MEDS ORDERED: K-DUR PO ONE ×2 (14:49→18:00)
--- NOTE | 2017-04-16 14:49 | Progress Note ---
Assessment and Plan Assessment and plan: Patient is 66-year-old Laotian man with a history of diabetes mellitus and arthritis who presented with diarrhea/n/v and found the following: CT abdomen and pelvis without contrast reported as a couple of subcentimeter gallstones in the region of the gallbladder neck, subtle changes of cholecystitis or not excluded, consider follow gallbladder ultrasound as well as being necessary nuclear medicine hepatobiliary scan, left posterior basilar consolidation, subcentimeter normal atelectasis with or without associated pneumonia, correlate clinically. Then, Complete abdominal ultrasound reported as cholelithiasis toward the gallbladder neck... -Sepsis with suspected cholecystitis: Treat with IV antibiotics -Cholelithiasis, no choledocholithiasis: Consulted GI -Hypotension, vasopressors weaned off, okay to transfer out of ICU per supervisor evaporator -Acute renal failure, ATN, present on admission, resolved with IV fluids -Drop in hematocrit: Check FOBT, consulted GI, stopped DVT prophylaxis with heparin, transfused 1 unit of blood -Severe hyponatremia, treated with IV fluids: Resolved -Hypokalemia with dehydration, replace: Repeat in a.m. Janusz was the historical interpreter, also spoke with gloria Dennison [phone] Ordered Hida scan EGD/colon on Wednesday. History Interval history: Patient was seen and examined. Follow-up on current diagnosis. Overnight uneventful. Patient denies any chest pain, shortness breath, nausea/vomiting or severe headaches. Imaging, nursing note, chart, labs and old chart reviewed. Discussed with patient. He tells me that he speaks Vinicius. He understands some Wolof but not much. Janusz was the historical interpreter, also spoke with gloria Dennison [phone] Hospitalist Physical - Physical exam Narrative exam: GEN: WDWN, NAD, AWAKE, ALERT, ORIENTATED HEENT: NCAT, EOMI, PERRL, OP Clear NECK: supple, no adenopathy, no thyromegaly, no JVD CVS/HEART: RRR, NORMAL S1S2, NO JVD, pulses present bilaterally CHEST/LUNGS: CTA B, Symmetrical chest expansion, good air entry bilaterally GI/Abdomen: soft, NTND, good bowel sounds, no guarding or rebound /Bladder: no suprapubic tenderness, no CVA or paraspinal tenderness EXT/Skin: no c/c/e, no obvious rash, large naked woman tattoo on his right anterior thigh MSK: FROM x 4 Neuro: CN 2-12 grossly intact, no new focal deficits Psych: calm - Constitutional Vitals: Temp Pulse Resp BP Pulse Ox 98.1 F 88 18 133/65 95 04/16/17 10:02 04/16/17 10:02 04/16/17 10:02 04/16/17 10:02 04/16/17 10:02 General appearance: Present: no acute distress, well-nourished Results - Labs CBC & Chem 7: 04/16/17 05:12 04/16/17 05:12 Labs: Laboratory Last Values WBC 8.4 K/mm3 (4.5-11.0) 04/16/17 05:12 RBC 2.97 M/mm3 (3.65-5.03) L 04/16/17 05:12 Hgb 7.9 gm/dl (11.8-15.2) L 04/16/17 05:12 Hct 23.2 % (35.5-45.6) L 04/16/17 05:12 MCV 78 fl (84-94) L 04/16/17 05:12 MCH 27 pg (28-32) L 04/16/17 05:12 MCHC 34 % (32-34) 04/16/17 05:12 RDW 19.6 % (13.2-15.2) H 04/16/17 05:12 Plt Count 219 K/mm3 (140-440) 04/16/17 05:12 Add Manual Diff Complete 04/14/17 14:54 Total Counted 100 04/14/17 14:54 Seg Neuts % (Manual) 89.0 % (40.0-70.0) H 04/14/17 14:54 Band Neutrophils % 0 % 04/14/17 14:54 Lymphocytes % (Manual) 1.0 % (13.4-35.0) L 04/14/17 14:54 Reactive Lymphs % (Man) 0 % 04/14/17 14:54 Monocytes % (Manual) 6.0 % (0.0-7.3) 04/14/17 14:54 Eosinophils % (Manual) 0 % (0.0-4.3) 04/14/17 14:54 Basophils % (Manual) 0 % (0.0-1.8) 04/14/17 14:54 Metamyelocytes % 1.0 % 04/14/17 14:54 Myelocytes % 3.0 % 04/14/17 14:54 Promyelocytes % 0 % 04/14/17 14:54 Blast Cells % 0 % 04/14/17 14:54 Nucleated RBC % Not Reportable 04/14/17 14:54 Seg Neutrophils # Man 10.9 K/mm3 (1.8-7.7) H 04/14/17 14:54 Band Neutrophils # 0.0 K/mm3 04/14/17 14:54 Lymphocytes # (Manual) 0.1 K/mm3 (1.2-5.4) L 04/14/17 14:54 Abs React Lymphs (Man) 0.0 K/mm3 04/14/17 14:54 Monocytes # (Manual) 0.7 K/mm3 (0.0-0.8) 04/14/17 14:54 Eosinophils # (Manual) 0.0 K/mm3 (0.0-0.4) 04/14/17 14:54 Basophils # (Manual) 0.0 K/mm3 (0.0-0.1) 04/14/17 14:54 Metamyelocytes # 0.1 K/mm3 04/14/17 14:54 Myelocytes # 0.4 K/mm3 04/14/17 14:54 Promyelocytes # 0.0 K/mm3 04/14/17 14:54 Blast Cells # 0.0 K/mm3 04/14/17 14:54 WBC Morphology Not Reportable 04/14/17 14:54 Hypersegmented Neuts Not Reportable 04/14/17 14:54 Hyposegmented Neuts Not Reportable 04/14/17 14:54 Hypogranular Neuts Not Reportable 04/14/17 14:54 Smudge Cells Not Reportable 04/14/17 14:54 Toxic Granulation Not Reportable 04/14/17 14:54 Toxic Vacuolation Not Reportable 04/14/17 14:54 Dohle Bodies Not Reportable 04/14/17 14:54 Pelger-Huet Anomaly Not Reportable 04/14/17 14:54 Rafat Rods Not Reportable 04/14/17 14:54 Platelet Estimate Appears normal 04/14/17 14:54 Clumped Platelets Not Reportable 04/14/17 14:54 Plt Clumps, EDTA Not Reportable 04/14/17 14:54 Large Platelets Not Reportable 04/14/17 14:54 Giant Platelets Not Reportable 04/14/17 14:54 Platelet Satelliting Not Reportable 04/14/17 14:54 Plt Morphology Comment Not Reportable 04/14/17 14:54 RBC Morphology Not Reportable 04/14/17 14:54 Dimorphic RBCs Not Reportable 04/14/17 14:54 Polychromasia Not Reportable 04/14/17 14:54 Hypochromasia Not Reportable 04/14/17 14:54 Poikilocytosis Few 04/14/17 14:54 Anisocytosis Few 04/14/17 14:54 Microcytosis Not Reportable 04/14/17 14:54 Macrocytosis Not Reportable 04/14/17 14:54 Spherocytes Not Reportable 04/14/17 14:54 Pappenheimer Bodies Not Reportable 04/14/17 14:54 Sickle Cells Not Reportable 04/14/17 14:54 Target Cells Not Reportable 04/14/17 14:54 Tear Drop Cells Not Reportable 04/14/17 14:54 Ovalocytes Not Reportable 04/14/17 14:54 Helmet Cells Not Reportable 04/14/17 14:54 Machado-Baldwyn Bodies Not Reportable 04/14/17 14:54 [place] Rings Not Reportable 04/14/17 14:54 Luis Alberto Cells Not Reportable 04/14/17 14:54 Bite Cells Not Reportable 04/14/17 14:54 Crenated Cell Not Reportable 04/14/17 14:54 Elliptocytes Not Reportable 04/14/17 14:54 Acanthocytes (Spur) Not Reportable 04/14/17 14:54 Rouleaux Not Reportable 04/14/17 14:54 Hemoglobin C Crystals Not Reportable 04/14/17 14:54 Schistocytes Rare 04/14/17 14:54 Malaria parasites Not Reportable 04/14/17 14:54 Jayson Bodies Not Reportable 04/14/17 14:54 Hem Pathologist Commnt No 04/14/17 14:54 Sodium 142 mmol/L (137-145) 04/16/17 05:12 Potassium 3.5 mmol/L (3.6-5.0) L 04/16/17 05:12 Chloride 107.7 mmol/L (98-107) H 04/16/17 05:12 Carbon Dioxide 18 mmol/L (22-30) L 04/16/17 05:12 Anion Gap 20 mmol/L 04/16/17 05:12 BUN 18 mg/dL (9-20) 04/16/17 05:12 Creatinine 0.9 mg/dL (0.8-1.5) 04/16/17 05:12 Estimated GFR > 60 ml/min 04/16/17 05:12 BUN/Creatinine Ratio 20 % 04/16/17 05:12 Glucose 158 mg/dL (75-100) H 04/16/17 05:12 POC Glucose 214 (70-105) H 04/16/17 13:52 Lactic Acid 1.00 mmol/L (0.7-2.0) 04/15/17 01:29 Calcium 8.3 mg/dL (8.4-10.2) L 04/16/17 05:12 Magnesium 1.60 mg/dL (1.7-2.3) L 04/16/17 05:12 Total Bilirubin 0.30 mg/dL (0.1-1.2) 04/15/17 08:41 AST 10 units/L (5-40) 04/15/17 08:41 ALT 10 units/L (7-56) 04/15/17 08:41 Alkaline Phosphatase 98 units/L (35-129) 04/15/17 08:41 Total Protein 5.9 g/dL (6.3-8.2) L 04/15/17 08:41 Albumin 2.6 g/dL (3.9-5) L 04/15/17 08:41 Albumin/Globulin Ratio 0.8 % 04/15/17 08:41 Lipase 48 units/L (13-60) 04/14/17 14:57 Urine Color Yellow (Yellow) 04/14/17 22:56 Urine Turbidity Clear (Clear) 04/14/17 22:56 Urine pH 5.0 (5.0-7.0) 04/14/17 22:56 Ur Specific [place] 1.006 (1.003-1.030) 04/14/17 22:56 Urine Protein <15 mg/dl mg/dL (Negative) 04/14/17 22:56 Urine Glucose (UA) Neg mg/dL (Negative) 04/14/17 22:56 Urine Ketones Neg mg/dL (Negative) 04/14/17 22:56 Urine Blood Sm (Negative) 04/14/17 22:56 Urine Nitrite Neg (Negative) 04/14/17 22:56 Urine Bilirubin Neg (Negative) 04/14/17 22:56 Urine Urobilinogen < 2.0 mg/dL (<2.0) 04/14/17 22:56 Ur Leukocyte Esterase Neg (Negative) 04/14/17 22:56 Urine WBC (Auto) < 1.0 /HPF (0.0-6.0) 04/14/17 22:56 Urine RBC (Auto) 2.0 /HPF (0.0-6.0) 04/14/17 22:56 Urine Mucus Few /HPF 04/14/17 22:56 Blood Type A POSITIVE 04/15/17 17:02 Antibody Screen Negative 04/15/17 17:02 Crossmatch See Detail 04/15/17 17:02
[2017-04-17] MEDS: FLAGYL 500 MG/100 ML 500 MG/100 ML BAG IV SCH (05:38)
[2017-04-17] MEDS ORDERED: KINEVAC IV ONE (09:04)
[2017-04-17] MEDS ORDERED: WATER FOR INJ (PF) IV ONE (09:05)
[2017-04-17] MEDS: LEVAQUIN 500MG/100ML 500 MG/100 ML BAG IV SCH (10:28)
[2017-04-17] MEDS: PEPCID IV SCH (10:28)
--- NOTE | 2017-04-17 11:02 | Nuclear Medicine Report ---
NUCLEAR MEDICINE HEPATOBILIARY SCAN: 04/17/17 14:51:00 CLINICAL: Abdominal pain and abnormal gallbladder ultrasound. TECHNIQUE: 5.5-mCi technetium 99m Choletec was injected intravenously. Serial images were obtained up to 60 minutes. At one hour, 1.45 mcg of Kinevac was injected intravenously and a slow infusion. No symptoms with the Kinevac injection. FINDINGS: Normal activity in the liver, bile ducts and small bowel. Normal gallbladder activity appears within 30 minutes. Normal gall bladder ejection fraction at 80%. IMPRESSION: Normal study. No evidence of acute cholecystitis.
--- NOTE | 2017-04-17 12:45 | Progress Note ---
Assessment and Plan Assessment and plan: Patient is 66-year-old Laotian man with a history of diabetes mellitus and arthritis who presented with diarrhea/n/v and found the following: CT abdomen and pelvis without contrast reported as a couple of subcentimeter gallstones in the region of the gallbladder neck, subtle changes of cholecystitis or not excluded, consider follow gallbladder ultrasound as well as being necessary nuclear medicine hepatobiliary scan, left posterior basilar consolidation, subcentimeter normal atelectasis with or without associated pneumonia, correlate clinically. Then, Complete abdominal ultrasound reported as cholelithiasis toward the gallbladder neck... -Sepsis with suspected cholecystitis: Treated with IV antibiotics -Cholelithiasis, no choledocholithiasis: Consulted GI -Hypotension, vasopressors weaned off, okay to transfer out of ICU per special education teachers -Acute renal failure, ATN, present on admission, resolved with IV fluids, stopped his Diovan -Drop in hematocrit: Check FOBT, consulted GI, stopped DVT prophylaxis with heparin, transfused 1 unit of blood -Severe hyponatremia, treated with IV fluids: Resolved -Hypokalemia with dehydration, replaced gloria Dennison [phone] was track coach Ordered Hida scan==>neg no ACUTE cholecystitis, stop abx EGD/colon on Wednesday. If no EGD/Colon then patient can go home History Interval history: Patient was seen and examined. Follow-up on current diagnosis. Overnight uneventful. Patient denies any chest pain, shortness breath, nausea/vomiting or severe headaches. Imaging, nursing note, chart, labs and old chart reviewed. Discussed with patient. He tells me that he speaks [place]. He understands some Mauritian but not much. spoke with gloria Dennison [phone] Hospitalist Physical - Physical exam Narrative exam: GEN: WDWN, NAD, AWAKE, ALERT, ORIENTATED HEENT: NCAT, EOMI, PERRL, OP Clear NECK: supple, no adenopathy, no thyromegaly, no JVD CVS/HEART: RRR, NORMAL S1S2, NO JVD, pulses present bilaterally CHEST/LUNGS: CTA B, Symmetrical chest expansion, good air entry bilaterally GI/Abdomen: soft, NTND, good bowel sounds, no guarding or rebound /Bladder: no suprapubic tenderness, no CVA or paraspinal tenderness EXT/Skin: no c/c/e, no obvious rash, large naked woman tattoo on his right anterior thigh MSK: FROM x 4 Neuro: CN 2-12 grossly intact, no new focal deficits Psych: calm - Constitutional Vitals: Temp Pulse Resp BP Pulse Ox 98.1 F 88 18 116/60 95 04/17/17 03:49 04/17/17 03:49 04/17/17 03:49 04/17/17 03:49 04/17/17 03:49 General appearance: Present: no acute distress, well-nourished Results - Labs CBC & Chem 7: 04/16/17 05:12 04/16/17 05:12 Labs: Laboratory Last Values WBC 8.4 K/mm3 (4.5-11.0) 04/16/17 05:12 RBC 2.97 M/mm3 (3.65-5.03) L 04/16/17 05:12 Hgb 7.9 gm/dl (11.8-15.2) L 04/16/17 05:12 Hct 23.2 % (35.5-45.6) L 04/16/17 05:12 MCV 78 fl (84-94) L 04/16/17 05:12 MCH 27 pg (28-32) L 04/16/17 05:12 MCHC 34 % (32-34) 04/16/17 05:12 RDW 19.6 % (13.2-15.2) H 04/16/17 05:12 Plt Count 219 K/mm3 (140-440) 04/16/17 05:12 Add Manual Diff Complete 04/14/17 14:54 Total Counted 100 04/14/17 14:54 Seg Neuts % (Manual) 89.0 % (40.0-70.0) H 04/14/17 14:54 Band Neutrophils % 0 % 04/14/17 14:54 Lymphocytes % (Manual) 1.0 % (13.4-35.0) L 04/14/17 14:54 Reactive Lymphs % (Man) 0 % 04/14/17 14:54 Monocytes % (Manual) 6.0 % (0.0-7.3) 04/14/17 14:54 Eosinophils % (Manual) 0 % (0.0-4.3) 04/14/17 14:54 Basophils % (Manual) 0 % (0.0-1.8) 04/14/17 14:54 Metamyelocytes % 1.0 % 04/14/17 14:54 Myelocytes % 3.0 % 04/14/17 14:54 Promyelocytes % 0 % 04/14/17 14:54 Blast Cells % 0 % 04/14/17 14:54 Nucleated RBC % Not Reportable 04/14/17 14:54 Seg Neutrophils # Man 10.9 K/mm3 (1.8-7.7) H 04/14/17 14:54 Band Neutrophils # 0.0 K/mm3 04/14/17 14:54 Lymphocytes # (Manual) 0.1 K/mm3 (1.2-5.4) L 04/14/17 14:54 Abs React Lymphs (Man) 0.0 K/mm3 04/14/17 14:54 Monocytes # (Manual) 0.7 K/mm3 (0.0-0.8) 04/14/17 14:54 Eosinophils # (Manual) 0.0 K/mm3 (0.0-0.4) 04/14/17 14:54 Basophils # (Manual) 0.0 K/mm3 (0.0-0.1) 04/14/17 14:54 Metamyelocytes # 0.1 K/mm3 04/14/17 14:54 Myelocytes # 0.4 K/mm3 04/14/17 14:54 Promyelocytes # 0.0 K/mm3 04/14/17 14:54 Blast Cells # 0.0 K/mm3 04/14/17 14:54 WBC Morphology Not Reportable 04/14/17 14:54 Hypersegmented Neuts Not Reportable 04/14/17 14:54 Hyposegmented Neuts Not Reportable 04/14/17 14:54 Hypogranular Neuts Not Reportable 04/14/17 14:54 Smudge Cells Not Reportable 04/14/17 14:54 Toxic Granulation Not Reportable 04/14/17 14:54 Toxic Vacuolation Not Reportable 04/14/17 14:54 Dohle Bodies Not Reportable 04/14/17 14:54 Pelger-Huet Anomaly Not Reportable 04/14/17 14:54 Rafat Rods Not Reportable 04/14/17 14:54 Platelet Estimate Appears normal 04/14/17 14:54 Clumped Platelets Not Reportable 04/14/17 14:54 Plt Clumps, EDTA Not Reportable 04/14/17 14:54 Large Platelets Not Reportable 04/14/17 14:54 Giant Platelets Not Reportable 04/14/17 14:54 Platelet Satelliting Not Reportable 04/14/17 14:54 Plt Morphology Comment Not Reportable 04/14/17 14:54 RBC Morphology Not Reportable 04/14/17 14:54 Dimorphic RBCs Not Reportable 04/14/17 14:54 Polychromasia Not Reportable 04/14/17 14:54 Hypochromasia Not Reportable 04/14/17 14:54 Poikilocytosis Few 04/14/17 14:54 Anisocytosis Few 04/14/17 14:54 Microcytosis Not Reportable 04/14/17 14:54 Macrocytosis Not Reportable 04/14/17 14:54 Spherocytes Not Reportable 04/14/17 14:54 Pappenheimer Bodies Not Reportable 04/14/17 14:54 Sickle Cells Not Reportable 04/14/17 14:54 Target Cells Not Reportable 04/14/17 14:54 Tear Drop Cells Not Reportable 04/14/17 14:54 Ovalocytes Not Reportable 04/14/17 14:54 Helmet Cells Not Reportable 04/14/17 14:54 Machado-[place] Bodies Not Reportable 04/14/17 14:54 [place] Rings Not Reportable 04/14/17 14:54 Luis Alberto Cells Not Reportable 04/14/17 14:54 Bite Cells Not Reportable 04/14/17 14:54 Crenated Cell Not Reportable 04/14/17 14:54 Elliptocytes Not Reportable 04/14/17 14:54 Acanthocytes (Spur) Not Reportable 04/14/17 14:54 Rouleaux Not Reportable 04/14/17 14:54 Hemoglobin C Crystals Not Reportable 04/14/17 14:54 Schistocytes Rare 04/14/17 14:54 Malaria parasites Not Reportable 04/14/17 14:54 Jayson Bodies Not Reportable 04/14/17 14:54 Hem Pathologist Commnt No 04/14/17 14:54 Sodium 142 mmol/L (137-145) 04/16/17 05:12 Potassium 3.5 mmol/L (3.6-5.0) L 04/16/17 05:12 Chloride 107.7 mmol/L (98-107) H 04/16/17 05:12 Carbon Dioxide 18 mmol/L (22-30) L 04/16/17 05:12 Anion Gap 20 mmol/L 04/16/17 05:12 BUN 18 mg/dL (9-20) 04/16/17 05:12 Creatinine 0.9 mg/dL (0.8-1.5) 04/16/17 05:12 Estimated GFR > 60 ml/min 04/16/17 05:12 BUN/Creatinine Ratio 20 % 04/16/17 05:12 Glucose 158 mg/dL (75-100) H 04/16/17 05:12 POC Glucose 227 (70-105) H 04/17/17 11:55 Lactic Acid 1.00 mmol/L (0.7-2.0) 04/15/17 01:29 Calcium 8.3 mg/dL (8.4-10.2) L 04/16/17 05:12 Magnesium 1.60 mg/dL (1.7-2.3) L 04/16/17 05:12 Total Bilirubin 0.30 mg/dL (0.1-1.2) 04/15/17 08:41 AST 10 units/L (5-40) 04/15/17 08:41 ALT 10 units/L (7-56) 04/15/17 08:41 Alkaline Phosphatase 98 units/L (35-129) 04/15/17 08:41 Total Protein 5.9 g/dL (6.3-8.2) L 04/15/17 08:41 Albumin 2.6 g/dL (3.9-5) L 04/15/17 08:41 Albumin/Globulin Ratio 0.8 % 04/15/17 08:41 Lipase 48 units/L (13-60) 04/14/17 14:57 Urine Color Yellow (Yellow) 04/14/17 22:56 Urine Turbidity Clear (Clear) 04/14/17 22:56 Urine pH 5.0 (5.0-7.0) 04/14/17 22:56 Ur Specific [place] 1.006 (1.003-1.030) 04/14/17 22:56 Urine Protein <15 mg/dl mg/dL (Negative) 04/14/17 22:56 Urine Glucose (UA) Neg mg/dL (Negative) 04/14/17 22:56 Urine Ketones Neg mg/dL (Negative) 04/14/17 22:56 Urine Blood Sm (Negative) 04/14/17 22:56 Urine Nitrite Neg (Negative) 04/14/17 22:56 Urine Bilirubin Neg (Negative) 04/14/17 22:56 Urine Urobilinogen < 2.0 mg/dL (<2.0) 04/14/17 22:56 Ur Leukocyte Esterase Neg (Negative) 04/14/17 22:56 Urine WBC (Auto) < 1.0 /HPF (0.0-6.0) 04/14/17 22:56 Urine RBC (Auto) 2.0 /HPF (0.0-6.0) 04/14/17 22:56 Urine Mucus Few /HPF 04/14/17 22:56 Blood Type A POSITIVE 04/15/17 17:02 Antibody Screen Negative 04/15/17 17:02 Crossmatch See Detail 04/15/17 17:02
[2017-04-17] MEDS ORDERED: PLAVIX PO SCH (13:00)
[2017-04-17] MEDS ORDERED: D50W (25GM) Vial IV PRN (13:00)
[2017-04-17] MEDS: PROTONIX PO SCH (13:43)
[2017-04-17] MEDS: HALFPRIN EC PO SCH (13:43)
[2017-04-17] MEDS: NEURONTIN PO SCH ×2 (13:43→21:57)
[2017-04-17] MEDS: ZYLOPRIM PO SCH (13:43)
--- NOTE | 2017-04-17 15:18 | Progress Note ---
Assessment and Plan - Patient Problems (1) ARF (acute renal failure) Current Visit: Yes Status: Acute (2) Anemia Current Visit: Yes Status: Acute Qualifiers: Anemia type: iron deficiency Plan to address problem: Stable clinically. EGD and colonoscopy are planned for Wednesday. Subjective Date of service: 04/17/17 Principal diagnosis: Anemia Interval history: The patient denies any discomfort. Objective - Constitutional Vitals: Vital Signs - 12hr 04/17/17 04/17/17 03:49 12:46 Temperature 98.1 F 98.4 F Pulse Rate 88 83 Respiratory 18 18 Rate Blood Pressure 116/60 Blood Pressure 142/65 [Right] O2 Sat by Pulse 95 93 Oximetry General appearance: Present: no acute distress, well-nourished - EENT Eyes: PERRL ENT: hearing intact, clear oral mucosa - Neck Neck: supple, normal ROM - Respiratory Respiratory: bilateral: CTA - Cardiovascular Rhythm: regular Heart Sounds: Present: S1 & S2. Absent: gallop, rub - Gastrointestinal General gastrointestinal: Present: soft, non-tender, non-distended, normal bowel sounds - Labs CBC & Chem 7: 04/16/17 05:12 04/16/17 05:12 Labs: Abnormal lab results 04/16/17 04/16/17 04/17/17 Range/Units 09:05 21:03 11:55 POC Glucose 184 H 215 H 227 H (70-105)
[2017-04-17] MEDS: NOVOLOG SUB-Q SCH ×2 (17:00→21:58)
[2017-04-17] MEDS: LEVEMIR SUB-Q SCH (21:57)
[2017-04-17] MEDS: PEPCID PO SCH (21:57)
[2017-04-17] MEDS ORDERED: INSULIN GLARGINE HUM REC ANLOG 10 UNIT SQ SCH (22:00)
[2017-04-18] MEDS: NEURONTIN PO SCH ×3 (05:21→22:12)
[2017-04-18 05:32] LABS: Hematocrit 23.7 % (35.5-45.6); Hemoglobin 8.1 gm/dl (11.8-15.2); Mean Corpuscular HGB Conc 34 % (32-34); Mean Corpuscular Hemoglobin 26 pg (28-32); Mean Corpuscular Volume 77 fl (84-94); Platelet Count 219 K/mm3 (140-440); Red Blood Count 3.07 M/mm3 (3.65-5.03); White Blood Count 8.2 K/mm3 (4.5-11.0)
[2017-04-18 05:33] LABS: Red Cell Distribution Width 20.1 % (13.2-15.2)
[2017-04-18 06:27] LABS: Anion Gap 16 mmol/L; BUN/Creatinine Ratio 9; Blood Urea Nitrogen 7 mg/dL (9-20); Calcium 7.9 mg/dL (8.4-10.2); Carbon Dioxide 24 mmol/L (22-30); Chloride 104.1 mmol/L (98-107); Glucose 54 mg/dL (75-100); Sodium 141 mmol/L (137-145)
[2017-04-18] MEDS ORDERED: BISOPROLOL 10 MG PO SCH (10:00)
[2017-04-18] MEDS: PROTONIX PO SCH (10:11)
[2017-04-18] MEDS: ZYLOPRIM PO SCH (10:11)
[2017-04-18] MEDS: PEPCID PO SCH ×2 (10:11→22:12)
[2017-04-18] MEDS: HALFPRIN EC PO SCH (10:11)
[2017-04-18] MEDS ORDERED: POTASSIUM CHLORIDE PO ONE (11:00)
[2017-04-18] MEDS: NOVOLOG SUB-Q SCH ×3 (12:00→22:12)
--- NOTE | 2017-04-18 13:55 | Progress Note ---
Assessment and Plan Assessment and plan: Patient is 66-year-old Laotian man with a history of diabetes mellitus and arthritis who presented with diarrhea/n/v and found the following: CT abdomen and pelvis without contrast reported as a couple of subcentimeter gallstones in the region of the gallbladder neck, subtle changes of cholecystitis or not excluded, consider follow gallbladder ultrasound as well as being necessary nuclear medicine hepatobiliary scan, left posterior basilar consolidation, subcentimeter normal atelectasis with or without associated pneumonia, correlate clinically. Then, Complete abdominal ultrasound reported as cholelithiasis toward the gallbladder neck... -Sepsis with suspected cholecystitis: Treated with IV antibiotics -Cholelithiasis, no choledocholithiasis: Consulted GI -Hypotension, vasopressors weaned off, okay to transfer out of ICU per meter reader -Acute renal failure, ATN, present on admission, resolved with IV fluids, stopped his Diovan -Drop in hematocrit: Check FOBT, consulted GI, stopped DVT prophylaxis with heparin, transfused 1 unit of blood -Severe hyponatremia, treated with IV fluids: Resolved -Hypokalemia with dehydration, replaced gloria Dennison [phone] was american sign language interpreter Ordered Hida scan==>neg no ACUTE cholecystitis, stop abx EGD/colon on Wednesday. History Interval history: Patient was seen and examined. Follow-up on current diagnosis. Overnight uneventful. Patient denies any chest pain, shortness breath, nausea/vomiting or severe headaches. Imaging, nursing note, chart, labs and old chart reviewed. Discussed with patient. He tells me that he speaks Swedish. He understands some Ukrainian but not much. spoke with gloria Dennison [phone] Hospitalist Physical - Physical exam Narrative exam: GEN: WDWN, NAD, AWAKE, ALERT, ORIENTATED HEENT: NCAT, EOMI, PERRL, OP Clear NECK: supple, no adenopathy, no thyromegaly, no JVD CVS/HEART: RRR, NORMAL S1S2, NO JVD, pulses present bilaterally CHEST/LUNGS: CTA B, Symmetrical chest expansion, good air entry bilaterally GI/Abdomen: soft, NTND, good bowel sounds, no guarding or rebound /Bladder: no suprapubic tenderness, no CVA or paraspinal tenderness EXT/Skin: no c/c/e, no obvious rash, large naked woman tattoo on his right anterior thigh MSK: FROM x 4 Neuro: CN 2-12 grossly intact, no new focal deficits Psych: calm - Constitutional Vitals: Temp Pulse Resp BP Pulse Ox 98.6 F 76 18 129/62 96 04/18/17 09:24 04/18/17 09:24 04/18/17 03:41 04/18/17 09:24 04/18/17 03:41 General appearance: Present: no acute distress, well-nourished Results - Labs CBC & Chem 7: 04/18/17 04:00 04/18/17 04:00 Labs: Laboratory Last Values WBC 8.2 K/mm3 (4.5-11.0) 04/18/17 04:00 RBC 3.07 M/mm3 (3.65-5.03) L 04/18/17 04:00 Hgb 8.1 gm/dl (11.8-15.2) L 04/18/17 04:00 Hct 23.7 % (35.5-45.6) L 04/18/17 04:00 MCV 77 fl (84-94) L 04/18/17 04:00 MCH 26 pg (28-32) L 04/18/17 04:00 MCHC 34 % (32-34) 04/18/17 04:00 RDW 20.1 % (13.2-15.2) H 04/18/17 04:00 Plt Count 219 K/mm3 (140-440) 04/18/17 04:00 Add Manual Diff Complete 04/14/17 14:54 Total Counted 100 04/14/17 14:54 Seg Neuts % (Manual) 89.0 % (40.0-70.0) H 04/14/17 14:54 Band Neutrophils % 0 % 04/14/17 14:54 Lymphocytes % (Manual) 1.0 % (13.4-35.0) L 04/14/17 14:54 Reactive Lymphs % (Man) 0 % 04/14/17 14:54 Monocytes % (Manual) 6.0 % (0.0-7.3) 04/14/17 14:54 Eosinophils % (Manual) 0 % (0.0-4.3) 04/14/17 14:54 Basophils % (Manual) 0 % (0.0-1.8) 04/14/17 14:54 Metamyelocytes % 1.0 % 04/14/17 14:54 Myelocytes % 3.0 % 04/14/17 14:54 Promyelocytes % 0 % 04/14/17 14:54 Blast Cells % 0 % 04/14/17 14:54 Nucleated RBC % Not Reportable 04/14/17 14:54 Seg Neutrophils # Man 10.9 K/mm3 (1.8-7.7) H 04/14/17 14:54 Band Neutrophils # 0.0 K/mm3 04/14/17 14:54 Lymphocytes # (Manual) 0.1 K/mm3 (1.2-5.4) L 04/14/17 14:54 Abs React Lymphs (Man) 0.0 K/mm3 04/14/17 14:54 Monocytes # (Manual) 0.7 K/mm3 (0.0-0.8) 04/14/17 14:54 Eosinophils # (Manual) 0.0 K/mm3 (0.0-0.4) 04/14/17 14:54 Basophils # (Manual) 0.0 K/mm3 (0.0-0.1) 04/14/17 14:54 Metamyelocytes # 0.1 K/mm3 04/14/17 14:54 Myelocytes # 0.4 K/mm3 04/14/17 14:54 Promyelocytes # 0.0 K/mm3 04/14/17 14:54 Blast Cells # 0.0 K/mm3 04/14/17 14:54 WBC Morphology Not Reportable 04/14/17 14:54 Hypersegmented Neuts Not Reportable 04/14/17 14:54 Hyposegmented Neuts Not Reportable 04/14/17 14:54 Hypogranular Neuts Not Reportable 04/14/17 14:54 Smudge Cells Not Reportable 04/14/17 14:54 Toxic Granulation Not Reportable 04/14/17 14:54 Toxic Vacuolation Not Reportable 04/14/17 14:54 Dohle Bodies Not Reportable 04/14/17 14:54 Pelger-Huet Anomaly Not Reportable 04/14/17 14:54 Rafat Rods Not Reportable 04/14/17 14:54 Platelet Estimate Appears normal 04/14/17 14:54 Clumped Platelets Not Reportable 04/14/17 14:54 Plt Clumps, EDTA Not Reportable 04/14/17 14:54 Large Platelets Not Reportable 04/14/17 14:54 Giant Platelets Not Reportable 04/14/17 14:54 Platelet Satelliting Not Reportable 04/14/17 14:54 Plt Morphology Comment Not Reportable 04/14/17 14:54 RBC Morphology Not Reportable 04/14/17 14:54 Dimorphic RBCs Not Reportable 04/14/17 14:54 Polychromasia Not Reportable 04/14/17 14:54 Hypochromasia Not Reportable 04/14/17 14:54 Poikilocytosis Few 04/14/17 14:54 Anisocytosis Few 04/14/17 14:54 Microcytosis Not Reportable 04/14/17 14:54 Macrocytosis Not Reportable 04/14/17 14:54 Spherocytes Not Reportable 04/14/17 14:54 Pappenheimer Bodies Not Reportable 04/14/17 14:54 Sickle Cells Not Reportable 04/14/17 14:54 Target Cells Not Reportable 04/14/17 14:54 Tear Drop Cells Not Reportable 04/14/17 14:54 Ovalocytes Not Reportable 04/14/17 14:54 Helmet Cells Not Reportable 04/14/17 14:54 Mach[place] Bodies Not Reportable 04/14/17 14:54 [place] Rings Not Reportable 04/14/17 14:54 [place] Cells Not Reportable 04/14/17 14:54 Bite Cells Not Reportable 04/14/17 14:54 Crenated Cell Not Reportable 04/14/17 14:54 Elliptocytes Not Reportable 04/14/17 14:54 Acanthocytes (Spur) Not Reportable 04/14/17 14:54 Rouleaux Not Reportable 04/14/17 14:54 Hemoglobin C Crystals Not Reportable 04/14/17 14:54 Schistocytes Rare 04/14/17 14:54 Malaria parasites Not Reportable 04/14/17 14:54 Jayson Bodies Not Reportable 04/14/17 14:54 Hem Pathologist Commnt No 04/14/17 14:54 Sodium 141 mmol/L (137-145) 04/18/17 04:00 Potassium 3.0 mmol/L (3.6-5.0) L 04/18/17 04:00 Chloride 104.1 mmol/L (98-107) 04/18/17 04:00 Carbon Dioxide 24 mmol/L (22-30) 04/18/17 04:00 Anion Gap 16 mmol/L 04/18/17 04:00 BUN 7 mg/dL (9-20) L 04/18/17 04:00 Creatinine 0.8 mg/dL (0.8-1.5) 04/18/17 04:00 Estimated GFR > 60 ml/min 04/18/17 04:00 BUN/Creatinine Ratio 9 % 04/18/17 04:00 Glucose 54 mg/dL (75-100) L 04/18/17 04:00 POC Glucose 184 (70-105) H 04/18/17 11:31 Lactic Acid 1.00 mmol/L (0.7-2.0) 04/15/17 01:29 Calcium 7.9 mg/dL (8.4-10.2) L 04/18/17 04:00 Magnesium 1.60 mg/dL (1.7-2.3) L 04/16/17 05:12 Total Bilirubin 0.30 mg/dL (0.1-1.2) 04/15/17 08:41 AST 10 units/L (5-40) 04/15/17 08:41 ALT 10 units/L (7-56) 04/15/17 08:41 Alkaline Phosphatase 98 units/L (35-129) 04/15/17 08:41 Total Protein 5.9 g/dL (6.3-8.2) L 04/15/17 08:41 Albumin 2.6 g/dL (3.9-5) L 04/15/17 08:41 Albumin/Globulin Ratio 0.8 % 04/15/17 08:41 Lipase 48 units/L (13-60) 04/14/17 14:57 Urine Color Yellow (Yellow) 04/14/17 22:56 Urine Turbidity Clear (Clear) 04/14/17 22:56 Urine pH 5.0 (5.0-7.0) 04/14/17 22:56 Ur Specific [place] 1.006 (1.003-1.030) 04/14/17 22:56 Urine Protein <15 mg/dl mg/dL (Negative) 04/14/17 22:56 Urine Glucose (UA) Neg mg/dL (Negative) 04/14/17 22:56 Urine Ketones Neg mg/dL (Negative) 04/14/17 22:56 Urine Blood Sm (Negative) 04/14/17 22:56 Urine Nitrite Neg (Negative) 04/14/17 22:56 Urine Bilirubin Neg (Negative) 04/14/17 22:56 Urine Urobilinogen < 2.0 mg/dL (<2.0) 04/14/17 22:56 Ur Leukocyte Esterase Neg (Negative) 04/14/17 22:56 Urine WBC (Auto) < 1.0 /HPF (0.0-6.0) 04/14/17 22:56 Urine RBC (Auto) 2.0 /HPF (0.0-6.0) 04/14/17 22:56 Urine Mucus Few /HPF 04/14/17 22:56 Blood Type A POSITIVE 04/15/17 17:02 Antibody Screen Negative 04/15/17 17:02 Crossmatch See Detail 04/15/17 17:02
--- NOTE | 2017-04-18 14:20 | Gastroenterology Progress Note ---
Assessment and Plan - Patient Problems (1) ARF (acute renal failure) Current Visit: Yes Status: Acute (2) Anemia Current Visit: Yes Status: Acute Qualifiers: Anemia type: iron deficiency Plan to address problem: Stable and not bleeding. EGD and colonoscopy scheduled for tomorrow. Prep tonight. Subjective Date of service: 04/18/17 Principal diagnosis: Anemia Interval history: Feels good. Objective - Constitutional Vitals: Temp Pulse Resp BP Pulse Ox 98.6 F 76 18 129/62 96 04/18/17 09:24 04/18/17 09:24 04/18/17 03:41 04/18/17 09:24 04/18/17 03:41 General appearance: no acute distress - EENT ENT: hearing intact, clear oral mucosa - Neck Neck: supple, normal ROM - Respiratory Respiratory effort: normal Respiratory: bilateral: CTA - Cardiovascular Rhythm: regular - Gastrointestinal General gastrointestinal: Present: soft, non-tender, non-distended, normal bowel sounds - Neurologic Neurological: alert and oriented x3 - Labs CBC & Chem 7: 04/18/17 04:00 04/18/17 04:00 Labs: Laboratory Results - last 24 hr 04/17/17 04/17/17 04/18/17 16:39 21:25 04:00 WBC 8.2 RBC 3.07 L Hgb 8.1 L Hct 23.7 L MCV 77 L MCH 26 L MCHC 34 RDW 20.1 H Plt Count 219 Sodium Potassium Chloride Carbon Dioxide Anion Gap BUN Creatinine Estimated GFR BUN/Creatinine Ratio Glucose POC Glucose 184 H 114 H Calcium 04/18/17 04/18/17 04/18/17 04:00 08:59 11:31 WBC RBC Hgb Hct MCV MCH MCHC RDW Plt Count Sodium 141 Potassium 3.0 L Chloride 104.1 Carbon Dioxide 24 Anion Gap 16 BUN 7 L Creatinine 0.8 Estimated GFR > 60 BUN/Creatinine Ratio 9 Glucose 54 L POC Glucose 71 184 H Calcium 7.9 L
[2017-04-18] MEDS ORDERED: GOLYTELY PO ONE (15:21)
[2017-04-18] MEDS: LEVEMIR SUB-Q SCH (22:14)
[2017-04-19] MEDS: NEURONTIN PO SCH ×2 (05:47→15:15)
[2017-04-19 06:07] LABS: Hematocrit 25.5 % (35.5-45.6); Hemoglobin 8.4 gm/dl (11.8-15.2); Mean Corpuscular HGB Conc 33 % (32-34); Mean Corpuscular Volume 77 fl (84-94); Platelet Count 225 K/mm3 (140-440); Red Blood Count 3.32 M/mm3 (3.65-5.03); Red Cell Distribution Width 19.8 % (13.2-15.2); White Blood Count 9.1 K/mm3 (4.5-11.0)
[2017-04-19 06:12] LABS: Mean Corpuscular Hemoglobin 25 pg (28-32)
[2017-04-19 06:29] LABS: Anion Gap 17 mmol/L; BUN/Creatinine Ratio 7; Blood Urea Nitrogen 5 mg/dL (9-20); Calcium 8.1 mg/dL (8.4-10.2); Carbon Dioxide 26 mmol/L (22-30); Chloride 103.8 mmol/L (98-107); Glucose 166 mg/dL (75-100); Potassium 3.9 mmol/L (3.6-5.0); Sodium 143 mmol/L (137-145)
[2017-04-19] MEDS: NOVOLOG SUB-Q SCH ×2 (08:00→12:00)
[2017-04-19] MEDS ORDERED: NACL 0.9% 1000 ML 1,000 ML IV SCH (12:00)
[2017-04-19] MEDS ORDERED: WATER FOR IRRIG STERILE ONE (13:03)
--- NOTE | 2017-04-19 13:03 | Anesthesia Day of Surgery ---
Anesthesia Day of Surgery - Day of Surgery Patient Examined: Yes Patient H&P Reviewed: Yes Patient is NPO: Yes
--- NOTE | 2017-04-19 13:03 | Anesthesia Consultation ---
Anesthesia Consult and Med Hx Date of service: 04/19/17 - Airway Anesthetic Teeth Evaluation: Good ROM Head & Neck: Adequate Mental/Hyoid Distance: Adequate Mallampati Class: Class II Intubation Access Assessment: Probably Good - Pulmonary Exam CTA: Yes - Cardiac Exam Cardiac Exam: RRR - Pre-Operative Health Status ASA Pre-Surgery Classification: ASA2 Proposed Anesthetic Plan: General - Cardiovascular System Hx Hypertension: Yes Hx Heart Attack/AMI: Yes - Endocrine Hx Non-Insulin Dependent Diabetes: No
[2017-04-19] MEDS ORDERED: DIPRIVAN 10 MG/ML IV ONE ×2 (13:06→13:07)
[2017-04-19] MEDS ORDERED: XYLOCAINE 1% 20 mL ONE (13:08)
--- NOTE | 2017-04-19 13:34 | Operative Report ---
Operative Report Operative Report: Date of procedure: 04/19/2017 Procedure: Esophagogastroduodenoscopy Preprocedure diagnosis: Unexplained anemia. Antiplatelet therapy required. Post procedure diagnosis: Normal upper digestive tract Endoscopist: Dr. Sheppard Anesthesia: Monitored anesthesia care per anesthesia department Medications: Propofol per anesthesia Estimated blood loss: 0 After careful discussion of the nature and purpose of the procedure as well as details the technique risks benefits and alternatives consent was obtained. The patient was placed in the left lateral decubitus position and medicated per anesthesia. The tip of the [employer] EQ 570 video scope was passed per orum under direct vision into the esophagus and advanced into the stomach and descending duodenum. The descending duodenum the duodenal bulb and pylorus were symmetrical and normal. The scope was withdrawn into the stomach and the stomach then gently insufflated with air. The antrum was normal. The stomach was further insufflated and the scope was then retroflexed and partially withdrawn. The cardia, fundus, and body of the stomach were within normal limits and easily distensible.The scope was then withdrawn in the forward position. The esophagogastric junction was at 38 cm. The esophageal body was normal throughout. The procedure was was well tolerated and the patient was observed in recovery. Impressions: Normal upper digestive tract Plan: Further evaluation with colonoscopy. Electronically signed: Doroteo Sheppard MD
--- NOTE | 2017-04-19 13:36 | Operative Report ---
Operative Report Operative Report: Date of procedure: 04/19/2017 Preprocedure diagnosis: Unexplained anemia. Antiplatelet therapy requirements. Post procedure diagnosis: Normal colon to the cecum Procedure: Colonoscopy to the cecum Endoscopist: Dr. Sheppard Anesthesia: Monitored anesthesia care per anesthesia department Estimated blood loss: 0 Medications: Monitored anesthesia care. See separate report by anesthesia for details. After careful discussion of the nature and purpose of the procedure as well as details of the technique risks benefits and alternatives the patient gave consent. Please see recent history and physical from the office. The patient was placed in the left lateral decubitus position and medicated per anesthesia. A rectal exam was performed sphincter tone was normal there were no masses palpable. The [employer] 570 scope was passed transanally and advanced under continuous direct vision without difficulty to the cecum. The colon was well prepared. The cecum was normal. The ascending colon was normal and on forward and retroflexed views. The transverse colon, descending colon, and sigmoid colon were normal. The rectum was normal on forward and retroflexed views. The procedure was well-tolerated overall and the patient was observed in recovery. Conclusions: Normal colonoscopy to the cecum. Plan: May resume antiplatelet therapy. Advance diet. May send home. Signed electronically: Doroteo Sheppard M.D.
[2017-04-19] MEDS ORDERED: TRIPLE ANTIBIOTIC TP ONE (13:37)
[2017-04-19] MEDS: HALFPRIN EC PO SCH (15:15)
[2017-04-19] MEDS: PEPCID PO SCH (15:15)
[2017-04-19] MEDS: PROTONIX PO SCH (15:15)
[2017-04-19] MEDS: ZYLOPRIM PO SCH (15:15)
[2017-04-19 15:23] VITALS: BP 147/33
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
== END 2017-04-19 20:15 | DRG 871 ==
LOC: ED 14:06 → CC1 04-15 04:17 → 4A 04-15 18:27
PROVIDERS: ADMIT Internal Medicine; ATTEND Internal Medicine
PROC: 06HM33Z Insertion of Infusion Device into Right Femoral Vein, Percutaneous Approach (ICD-10-PCS; principal; 2017-04-15)
PROC: 30233N1 Transfusion of Nonautologous Red Blood Cells into Peripheral Vein, Percutaneous Approach (ICD-10-PCS; 2017-04-15)
PROC: 0DJ08ZZ Inspection of Upper Intestinal Tract, Via Natural or Artificial Opening Endoscopic (ICD-10-PCS; 2017-04-19)
PROC: 0DJD8ZZ Inspection of Lower Intestinal Tract, Via Natural or Artificial Opening Endoscopic (ICD-10-PCS; 2017-04-19)
DX: A41.9 Sepsis, unspecified organism (principal); N17.0 Acute kidney failure with tubular necrosis; R71.0 Precipitous drop in hematocrit; E87.1 Hypo-osmolality and hyponatremia; E87.2 Acidosis; I95.9 Hypotension, unspecified; E87.6 Hypokalemia; K80.20 Calculus of gallbladder without cholecystitis without obstruction; E11.9 Type 2 diabetes mellitus without complications; E78.5 Hyperlipidemia, unspecified; M19.90 Unspecified osteoarthritis, unspecified site; Z79.899 Other long term (current) drug therapy; Z79.4 Long term (current) use of insulin; I25.2 Old myocardial infarction; Z79.2 Long term (current) use of antibiotics
CPT/HCPCS: 36415; 36430; 74176; 76700; 78227; 80048; 80053; 81001; 82140; 82962; 83690; 83735; 85007; 85025; 85027; 86850; 86900; 86901; 86920; 87040; 93005; 93010; A6250; A9270-GY; A9537; J1815; J1818; J1956; J2704; J2805; J3475; J3480; J7030; J7040; J7050; P9016

== ENCOUNTER 2017-09-10 10:41 | Outpatient (CLI) | payer MEDICARE ==
[2017-09-10 11:41] LABS: Blood Urea Nitrogen 19 mg/dL (9-20)
--- NOTE | 2017-09-12 09:54 | Cat Scan Report ---
CT ABDOMEN PELVIS WITH CONTRAST: HISTORY: Abdominal pain, diarrhea. COMPARISON: 04/14/17. TECHNIQUE: Helical CT in 1.25mm intervals following IV contrast. Sagittal and coronal reconstructions. FINDINGS: Lung bases: Mild cardiomegaly. Small left layering pleural effusion measuring 1 cm in thickness which is new. Liver: Mild fatty infiltration of liver parenchyma is identified. No focal mass or enlargement. The portal venous system is patent. Biliary system: There are two 5 mm calcified gallstones within a partially contracted gallbladder. No biliary dilatation or inflammatory changes are appreciated. Pancreas: Normal. Spleen: Normal. Kidneys/ureters/bladder: The kidneys are normal size and position. No nephrolithiasis or hydronephrosis is identified. There are focal areas of chronic cortical scarring in the right kidney. No mass or cystic disease appreciated. The ureters and bladder are unremarkable. Normal prostate gland. Adrenal glands: Normal. Aorta: Moderate diffuse calcifications throughout the aorta and major branches. Intestines: No evidence for GI obstruction, focal inflammation or obvious mass. The appendix is unremarkable. Ascites: Trace perihepatic and perisplenic ascites is identified which is new. Adenopathy: None. Musculoskeletal: Borderline osteopenia. Mild degenerative changes in the spine. No fracture or suspicious bony lesion. IMPRESSION: Mild volume overload is suspected. There is mild cardiomegaly, small left pleural effusion and trace ascites. No acute inflammatory process is appreciated in the abdomen or pelvis. Cholelithiasis. Moderate atherosclerotic disease throughout the aorta and major branches.
== END 2017-09-10 10:42 | disposition home or self-care (01) ==
LOC: CT 10:41
PROVIDERS: ATTEND Internal Medicine Gastroenterology
DX: K80.20 Calculus of gallbladder without cholecystitis without obstruction (principal); I51.7 Cardiomegaly; I70.0 Atherosclerosis of aorta; J90 Pleural effusion, not elsewhere classified; M47.899 Other spondylosis, site unspecified
CPT/HCPCS: 36415; 74177; 82565; 84520; Q9967